=== PATIENT | female | born 1970 | race African-American/Black ===

== ENCOUNTER 2022-08-30 04:06 | Inpatient (IN) ==
[2022-08-30] MEDS ORDERED: ASPIRIN 325 MG TABLET PO STA (04:25)
[2022-08-30] MEDS ORDERED: methylPREDNISolone SOD SUC 125 MG/2 ML VIAL IV STA (05:00)
[2022-08-30] MEDS ORDERED: ALBUTEROL/IPRATROPIUM 3 ML NEB RESP TX STA ×2 (05:00→05:32)
[2022-08-30 05:51] LABS: Albumin 2.9 G/DL (3.4-5.0); Bilirubin,Total 0.4 MG/DL (0.20-1.00); Calcium 8.5 MG/DL (8.5-10.1); Osmolality,Calculated 299.7 MOS/KG (273-304); Potassium 3.9 MMOL/L (3.5-5.1); Total Protein 6.7 G/DL (6.4-8.2)
[2022-08-30] MEDS ORDERED: SODIUM CHLORIDE 0.9% 1,000 ML IV PRN ×2 (06:34→08:11)
[2022-08-30] MEDS ORDERED: ALBUTEROL 2.5 MG/3 ML NEB RESP TX STA (07:24)
[2022-08-30] MEDS ORDERED: ONDANSETRON 4 MG/2 ML VIAL IV PRN (08:08)
[2022-08-30] MEDS ORDERED: FUROSEMIDE 40 MG/4 ML VIAL IV STA (08:12)
[2022-08-30 08:38] LABS: % Iron Saturation 18.9 % (18-50)
[2022-08-30] MEDS ORDERED: POLYETHYLENE GLYCOL POWDER 255 GM BOTTLE PO ONE (08:41)
[2022-08-30] MEDS ORDERED: LOPERAMIDE 2 MG CAPSULE PO PRN (08:45)
[2022-08-30] MEDS ORDERED: ALBUTEROL 2.5 MG/3 ML NEB RESP TX PRN (08:45)
[2022-08-30] MEDS ORDERED: ALUMINUM/MAGNES/SIMETH MAX STR 30 ML UDCUP PO PRN (08:45)
[2022-08-30 08:48] LABS: Ferritin 607.5 ng/mL (8-252)
[2022-08-30] MEDS: ISOSORBIDE MONONITRATE 30 MG TABLET PO SCH (09:05)
[2022-08-30] MEDS: cloNIDine 0.1 MG TABLET PO SCH ×3 (09:05→20:25)
[2022-08-30] MEDS: HEPARIN 5,000 UNIT/1 ML VIAL SUBCUT SCH ×2 (09:05→21:04)
[2022-08-30] MEDS: PANTOPRAZOLE 40 MG TABLET PO SCH (09:05)
[2022-08-30] MEDS: LABETALOL 200 MG TABLET PO SCH ×2 (09:05→20:25)
[2022-08-30] MEDS: LORATADINE 10 MG TABLET PO SCH (09:05)
[2022-08-30] MEDS: amLODIPine 10 MG TABLET PO SCH (09:05)
[2022-08-30] MEDS: PIPERACILLIN/TAZOBACTAM 3,375 MG in SODIUM CHLORIDE 0.9% 100 ML IV SCH ×2 (09:10→20:24)
[2022-08-30 09:18] LABS: Basophils % 0.3 % (0.0-0.8); Eosinophils # 0.1 10*3/uL (0.0-0.87); Eosinophils % 2.6 % (0.00-10.9); Hematocrit 19.6 VOL% (35.7-47.0); Immature Granulocytes % 0.5 %; Immature Granulocytes Absolute 0.02 #; Lymphocytes # 0.8 10*3/uL (1.4-4.0); Lymphocytes % 21.8 % (21.3-54.2); Mean Corpuscular HGB Conc 31.1 GM/DL (32-36); Mean Corpuscular Volume 86.3 FL (87-102); Mean Platelet Volume 10.3 FL (9.6-12.0); Monocytes # 0.5 10*3/uL (0.11-0.8); Monocytes % 13.2 % (1.7-12.7); Neutrophils % 61.6 % (38.7-73.9); Platelet Count 198 T/CUMM (130-400); Red Blood Count 2.27 MC/CUMM (3.8-5.5); White Blood Count 3.9 T/CUMM (4-12)
[2022-08-30 09:19] LABS: Hemoglobin 6.1 GM/DL (12.0-16.0)
[2022-08-30 09:39] LABS: RBC,Urine 2 /HPF (0-4); Squamous Epithelial Cell,Urine Occasional /HPF (0-10)
[2022-08-30 09:40] LABS: Urine Appearance Clear (Clear); Urine Color Yellow (Yellow)
[2022-08-30 09:41] LABS: Bilirubin,Urine Negative (Negative); Blood, Urine Trace mg/dL (Negative); Glucose,Urine (UA) Negative (Negative); Ketones,Urine Negative (Negative); Nitrite,Urine Negative (Negative); Protein,Urine >=300 mg/dL (Negative); Urine Specific Gravity 1.015 (1.001-1.035); Urine Urobilinogen 0.2 eU/dL (<2.0); Urine pH 6.5 (4.5-8.0)
[2022-08-30 10:22] LABS: Sedimentation Rate-Westergren 121 MM/HR (0-20)
[2022-08-30] MEDS: ALBUTEROL/IPRATROPIUM 3 ML NEB RESP TX SCH ×3 (10:24→20:07)
[2022-08-30 12:27] LABS: Barbiturates Screen,Urine Negative (Negative); Benzodiazepines Screen,Urine Negative (Negative); Cannabinoid Screen,Urine Negative (Negative); Opiate Screen,Urine Negative (Negative); Phencyclidine Screen,Urine Negative (Negative)
[2022-08-30] MEDS ORDERED: FUROSEMIDE 40 MG/4 ML VIAL IV ONE (14:37)
[2022-08-30] MEDS: methylPREDNISolone SOD SUC 40 MG/1 ML VIAL IV SCH ×2 (16:54→21:52)
[2022-08-30] MEDS: POLYETHYLENE GLYCOL POWDER 17 GM PACK PO SCH (16:55)
[2022-08-30] MEDS: hydrALAZINE 20 MG/1 ML VIAL IV PRN (18:20)
[2022-08-30 20:40] LABS: Folate 15.38 NG/ML (5.38-24.0); Vitamin B12 452 PG/ML (211-911)
[2022-08-30] MEDS: QUEtiapine 100 MG TABLET PO SCH (21:15)
[2022-08-30] MEDS: ATORVASTATIN 20 MG TABLET PO SCH (21:15)
[2022-08-30] MEDS: ACETAMINOPHEN 325 MG TABLET PO PRN (21:24)
[2022-08-31] MEDS: methylPREDNISolone SOD SUC 40 MG/1 ML VIAL IV SCH (05:20)
[2022-08-31] MEDS: cloNIDine 0.1 MG TABLET PO SCH ×2 (05:21→08:03)
[2022-08-31 05:32] LABS: Hematocrit 27.5 VOL% (35.7-47.0); Immature Granulocytes % 0.6 %; Immature Granulocytes Absolute 0.03 #; Lymphocytes # 0.5 10*3/uL (1.4-4.0); Lymphocytes % 10.1 % (21.3-54.2); Mean Corpuscular Volume 84.4 FL (87-102); Mean Platelet Volume 9.6 FL (9.6-12.0); Monocytes # 0.1 10*3/uL (0.11-0.8); Monocytes % 2.7 % (1.7-12.7); Neutrophils % 86.6 % (38.7-73.9); Platelet Count 224 T/CUMM (130-400); Red Cell Distribution Width 17.3 % (9.3-17.3)
[2022-08-31 05:51] LABS: Hemoglobin 8.8 GM/DL (12.0-16.0); Red Blood Count 3.26 MC/CUMM (3.8-5.5); White Blood Count 5.3 T/CUMM (4-12)
[2022-08-31] MEDS: ALBUTEROL/IPRATROPIUM 3 ML NEB RESP TX SCH ×6 (05:57→20:56)
[2022-08-31 06:08] LABS: Risk Ratio 1.43; VLDL Cholesterol 4.6 MG/DL
[2022-08-31 06:22] LABS: Phosphorous 5.9 MG/DL (2.5-4.9); Uric Acid 9.6 MG/DL (2.6-6.0)
[2022-08-31 06:33] LABS: Albumin 3.1 G/DL (3.4-5.0); Bilirubin,Total 0.6 MG/DL (0.20-1.00); Calcium 9.1 MG/DL (8.5-10.1); Osmolality,Calculated 304.8 MOS/KG (273-304); Potassium 4.1 MMOL/L (3.5-5.1); Thyroid Stimulating Hormone 1.89 uIU/ml (0.358-3.74); Total Protein 8.2 G/DL (6.4-8.2)
[2022-08-31 06:39] LABS: Total Protein 8.3 G/DL (6.4-8.2)
[2022-08-31 06:45] LABS: Hepatitis B Surface Ab Result Reactive (NonReactive); Hepatitis B Surface Ag Quant < 0.10 Index; Hepatitis B Surface Ag Result Non-Reactive (NonReactive); Hepatitis C Virus Ab Quant 0.05 Index; Hepatitis C Virus Ab Result Non-Reactive (NonReactive)
[2022-08-31 07:41] LABS: RPR Confirm - Less than 1 yr NONREACTIVE (Nonreactive)
[2022-08-31] MEDS: ISOSORBIDE MONONITRATE 30 MG TABLET PO SCH (08:02)
[2022-08-31] MEDS: LORATADINE 10 MG TABLET PO SCH (08:02)
[2022-08-31] MEDS: PANTOPRAZOLE 40 MG TABLET PO SCH (08:02)
[2022-08-31] MEDS: amLODIPine 10 MG TABLET PO SCH (08:02)
[2022-08-31] MEDS: POLYETHYLENE GLYCOL POWDER 17 GM PACK PO SCH (08:02)
[2022-08-31] MEDS: PIPERACILLIN/TAZOBACTAM 3,375 MG in SODIUM CHLORIDE 0.9% 100 ML IV SCH ×2 (08:04→22:08)
[2022-08-31] MEDS: LABETALOL 200 MG TABLET PO SCH ×2 (09:00→22:10)
[2022-08-31] MEDS: HEPARIN 5,000 UNIT/1 ML VIAL SUBCUT SCH ×2 (10:19→22:11)
[2022-08-31] MEDS: FLUTICASONE 50 MCG NASAL SPRAY 16 GM BOTTLE BOTH NARES SCH (10:20)
[2022-08-31] MEDS: hydrALAZINE 20 MG/1 ML VIAL IV PRN (11:28)
[2022-08-31] MEDS: ISOSORBIDE DINITRATE 20 MG TABLET PO SCH ×2 (14:53→22:10)
[2022-08-31] MEDS: hydrALAZINE 25 MG TABLET PO SCH ×2 (14:53→22:10)
[2022-08-31] MEDS: ATORVASTATIN 20 MG TABLET PO SCH (22:10)
[2022-08-31] MEDS: QUEtiapine 100 MG TABLET PO SCH (22:10)
[2022-08-31] MEDS: DOCUSATE SODIUM 100 MG CAPSULE PO PRN (22:10)
[2022-09-01] MEDS: ALBUTEROL/IPRATROPIUM 3 ML NEB RESP TX SCH ×7 (00:13→23:51)
[2022-09-01 06:17] LABS: Calcium 8.5 MG/DL (8.5-10.1); Osmolality,Calculated 308.5 MOS/KG (273-304); Potassium 3.9 MMOL/L (3.5-5.1)
[2022-09-01 06:34] LABS: Basophils % 0.2 % (0.0-0.8); Eosinophils % 0.2 % (0.00-10.9); Hematocrit 23.6 VOL% (35.7-47.0); Hemoglobin 7.5 GM/DL (12.0-16.0); Immature Granulocytes % 0.6 %; Immature Granulocytes Absolute 0.04 #; Lymphocytes % 15.3 % (21.3-54.2); Mean Corpuscular HGB Conc 31.8 GM/DL (32-36); Mean Corpuscular Volume 85.5 FL (87-102); Mean Platelet Volume 8.8 FL (9.6-12.0); Monocytes # 0.5 10*3/uL (0.11-0.8); Monocytes % 8.6 % (1.7-12.7); Neutrophils % 75.1 % (38.7-73.9); Platelet Count 193 T/CUMM (130-400); Red Blood Count 2.76 MC/CUMM (3.8-5.5); Red Cell Distribution Width 17.7 % (9.3-17.3); White Blood Count 6.2 T/CUMM (4-12)
[2022-09-01] MEDS: LABETALOL 200 MG TABLET PO SCH ×2 (09:13→21:16)
[2022-09-01] MEDS: ISOSORBIDE MONONITRATE 30 MG TABLET PO SCH (09:14)
[2022-09-01] MEDS: amLODIPine 10 MG TABLET PO SCH (09:14)
[2022-09-01] MEDS: LORATADINE 10 MG TABLET PO SCH (09:14)
[2022-09-01] MEDS: HEPARIN 5,000 UNIT/1 ML VIAL SUBCUT SCH ×3 (09:15→21:17)
[2022-09-01] MEDS: PIPERACILLIN/TAZOBACTAM 3,375 MG in SODIUM CHLORIDE 0.9% 100 ML IV SCH ×2 (09:15→21:16)
[2022-09-01] MEDS: FERRIC GLUCONATE COMPLEX 125 MG in SODIUM CHLORIDE 0.9% 100 ML IV SCH (09:15)
[2022-09-01] MEDS: POLYETHYLENE GLYCOL POWDER 17 GM PACK PO SCH (09:16)
[2022-09-01] MEDS: PANTOPRAZOLE 40 MG TABLET PO SCH (09:16)
[2022-09-01] MEDS: ISOSORBIDE DINITRATE 20 MG TABLET PO SCH ×3 (09:22→21:02)
[2022-09-01] MEDS: FLUTICASONE 50 MCG NASAL SPRAY 16 GM BOTTLE BOTH NARES SCH (09:25)
[2022-09-01 14:11] LABS: % CD4 (T Cells) 17 % (32-64); % CD8 (T Cells) 39 % (13-40); 4/8 Ratio 0.4 (>=0.9)
[2022-09-01] MEDS: QUEtiapine 100 MG TABLET PO SCH (21:00)
[2022-09-01] MEDS: DOCUSATE SODIUM 100 MG CAPSULE PO PRN (21:01)
[2022-09-01] MEDS: ATORVASTATIN 20 MG TABLET PO SCH (21:01)
[2022-09-02] MEDS: ALBUTEROL/IPRATROPIUM 3 ML NEB RESP TX SCH ×6 (02:05→23:30)
[2022-09-02 07:58] LABS: Basophils % 0.2 % (0.0-0.8); Eosinophils # 0.1 10*3/uL (0.0-0.87); Eosinophils % 1.8 % (0.00-10.9); Hematocrit 23.3 VOL% (35.7-47.0); Hemoglobin 7.3 GM/DL (12.0-16.0); Immature Granulocytes % 0.7 %; Immature Granulocytes Absolute 0.03 #; Lymphocytes # 0.8 10*3/uL (1.4-4.0); Lymphocytes % 17.8 % (21.3-54.2); Mean Corpuscular HGB Conc 31.3 GM/DL (32-36); Mean Corpuscular Volume 85.3 FL (87-102); Mean Platelet Volume 9.5 FL (9.6-12.0); Monocytes # 0.4 10*3/uL (0.11-0.8); Monocytes % 8.9 % (1.7-12.7); Neutrophils % 70.6 % (38.7-73.9); Platelet Count 184 T/CUMM (130-400); Red Blood Count 2.73 MC/CUMM (3.8-5.5); Red Cell Distribution Width 17.4 % (9.3-17.3); White Blood Count 4.4 T/CUMM (4-12)
[2022-09-02 08:19] LABS: Calcium 8.2 MG/DL (8.5-10.1); Osmolality,Calculated 314.1 MOS/KG (273-304); Potassium 3.8 MMOL/L (3.5-5.1)
[2022-09-02] MEDS: ISOSORBIDE MONONITRATE 30 MG TABLET PO SCH (08:39)
[2022-09-02] MEDS: ISOSORBIDE DINITRATE 20 MG TABLET PO SCH ×2 (08:39→14:25)
[2022-09-02] MEDS: PANTOPRAZOLE 40 MG TABLET PO SCH (08:40)
[2022-09-02] MEDS: FERRIC GLUCONATE COMPLEX 125 MG in SODIUM CHLORIDE 0.9% 100 ML IV SCH (08:40)
[2022-09-02] MEDS: amLODIPine 10 MG TABLET PO SCH (08:40)
[2022-09-02] MEDS: FLUTICASONE 50 MCG NASAL SPRAY 16 GM BOTTLE BOTH NARES SCH (08:40)
[2022-09-02] MEDS: LORATADINE 10 MG TABLET PO SCH (08:40)
[2022-09-02] MEDS: HEPARIN 5,000 UNIT/1 ML VIAL SUBCUT SCH ×2 (08:41→20:49)
[2022-09-02] MEDS: POLYETHYLENE GLYCOL POWDER 17 GM PACK PO SCH (08:41)
[2022-09-02] MEDS: LABETALOL 200 MG TABLET PO SCH ×2 (08:51→20:49)
[2022-09-02 09:29] LABS: Immunoglobulin A (Chem) 230 MG/DL (70-400); Immunoglobulin G (Chem) 1910 MG/DL (700-1600); Immunoglobulin M (Chem) 35 MG/DL (40-230); Total Protein (Chem) 8.3 G/DL (6.4-8.3)
[2022-09-02 09:51] LABS: Hemoglobin A1 (Alkaline) 97.5 % (96.5-98.5); Hemoglobin A2 (Alkaline) 2.5 % (1.5-3.5)
[2022-09-02] MEDS: predniSONE 20 MG TABLET PO SCH (10:07)
[2022-09-02] MEDS: PIPERACILLIN/TAZOBACTAM 3,375 MG in SODIUM CHLORIDE 0.9% 100 ML IV SCH (10:07)
[2022-09-02 11:11] LABS: Albumin (SPE) 4.5 G/DL (3.2-5.3); Albumin (SPE) Rel % 54.7 %; Alpha 1 (SPE) 0.3 G/DL (0.1-0.4); Alpha 1 (SPE) Rel % 3.4 %; Alpha 2 (SPE) 0.9 G/DL (0.4-1.0); Alpha 2 (SPE) Rel % 10.6 %; Beta (SPE) 0.8 G/DL (0.5-1.1); Beta (SPE) Rel % 9.7 %; Gamma (SPE) 1.8 G/DL (0.7-1.7); Gamma (SPE) Rel % 21.6 %
[2022-09-02 11:36] LABS: Mycoplasma pneumoniae Ab Inter SEE COMMENTS; Mycoplasma pneumoniae Ab, IgG Positive (Negative); Mycoplasma pneumoniae Ab, IgM Negative (Negative)
[2022-09-02] MEDS: cefTRIAXone 1,000 MG in SODIUM CHLORIDE 0.9% 100 ML IV SCH (12:59)
[2022-09-02] MEDS: AZITHROMYCIN INJ 500 MG in SODIUM CHLORIDE 0.9% 250 ML IV SCH (13:29)
[2022-09-02] MEDS: ATORVASTATIN 20 MG TABLET PO SCH (20:49)
[2022-09-02] MEDS: QUEtiapine 100 MG TABLET PO SCH (20:49)
[2022-09-03] MEDS: ALBUTEROL/IPRATROPIUM 3 ML NEB RESP TX SCH ×5 (03:30→19:10)
[2022-09-03 05:39] LABS: Eosinophils % 0.2 % (0.00-10.9); Hematocrit 23.9 VOL% (35.7-47.0); Hemoglobin 7.7 GM/DL (12.0-16.0); Immature Granulocytes Absolute 0.05 #; Lymphocytes # 0.6 10*3/uL (1.4-4.0); Lymphocytes % 12.5 % (21.3-54.2); Mean Corpuscular HGB Conc 32.2 GM/DL (32-36); Mean Corpuscular Volume 85.7 FL (87-102); Mean Platelet Volume 10.1 FL (9.6-12.0); Monocytes # 0.4 10*3/uL (0.11-0.8); Monocytes % 8.6 % (1.7-12.7); Neutrophils % 77.7 % (38.7-73.9); Platelet Count 187 T/CUMM (130-400); Red Blood Count 2.79 MC/CUMM (3.8-5.5); Red Cell Distribution Width 17.2 % (9.3-17.3)
[2022-09-03 06:02] LABS: Calcium 8.5 MG/DL (8.5-10.1); Osmolality,Calculated 310.3 MOS/KG (273-304); Potassium 3.5 MMOL/L (3.5-5.1)
[2022-09-03] MEDS: POLYETHYLENE GLYCOL POWDER 17 GM PACK PO SCH (08:55)
[2022-09-03] MEDS: LORATADINE 10 MG TABLET PO SCH (08:55)
[2022-09-03] MEDS: HEPARIN 5,000 UNIT/1 ML VIAL SUBCUT SCH ×2 (08:55→20:47)
[2022-09-03] MEDS: LABETALOL 200 MG TABLET PO SCH (08:55)
[2022-09-03] MEDS: FLUTICASONE 50 MCG NASAL SPRAY 16 GM BOTTLE BOTH NARES SCH (08:55)
[2022-09-03] MEDS: predniSONE 20 MG TABLET PO SCH (08:56)
[2022-09-03] MEDS: amLODIPine 10 MG TABLET PO SCH (08:56)
[2022-09-03] MEDS: PANTOPRAZOLE 40 MG TABLET PO SCH (08:56)
[2022-09-03] MEDS ORDERED: ASPIRIN EC 81 MG TABLET PO SCH (09:00)
[2022-09-03] MEDS ORDERED: ISOSORBIDE MONONITRATE 30 MG TABLET PO SCH (09:00)
[2022-09-03] MEDS: FERRIC GLUCONATE COMPLEX 125 MG in SODIUM CHLORIDE 0.9% 100 ML IV SCH (09:05)
[2022-09-03] MEDS ORDERED: carvediloL 6.25 MG TABLET PO ONE (10:21)
[2022-09-03] MEDS ORDERED: ISOSORBIDE MONONITRATE 30 MG TABLET PO ONE (10:22)
[2022-09-03] MEDS: cefTRIAXone 1,000 MG in SODIUM CHLORIDE 0.9% 100 ML IV SCH (13:34)
[2022-09-03] MEDS: AZITHROMYCIN INJ 500 MG in SODIUM CHLORIDE 0.9% 250 ML IV SCH (14:13)
[2022-09-03] MEDS: carvediloL 25 MG TABLET PO SCH (16:11)
[2022-09-03 16:31] LABS: Myeloperoxidase Antibody < 0.2 U
[2022-09-03 17:31] LABS: Kappa Free Light Chain 38.4 mg/dL; Lambda Free Light Chain 22.8 mg/dL
[2022-09-03] MEDS: QUEtiapine 100 MG TABLET PO SCH (20:46)
[2022-09-03] MEDS: ATORVASTATIN 20 MG TABLET PO SCH (20:46)
[2022-09-04] MEDS: ALBUTEROL/IPRATROPIUM 3 ML NEB RESP TX SCH ×7 (00:35→23:55)
[2022-09-04 05:42] LABS: Eosinophils % 0.2 % (0.00-10.9); Hematocrit 25.4 VOL% (35.7-47.0); Immature Granulocytes Absolute 0.05 #; Lymphocytes # 0.7 10*3/uL (1.4-4.0); Lymphocytes % 13.9 % (21.3-54.2); Mean Corpuscular HGB Conc 31.5 GM/DL (32-36); Mean Corpuscular Volume 86.7 FL (87-102); Mean Platelet Volume 10.5 FL (9.6-12.0); Monocytes # 0.4 10*3/uL (0.11-0.8); Monocytes % 8.6 % (1.7-12.7); Neutrophils % 76.3 % (38.7-73.9); Platelet Count 188 T/CUMM (130-400); Red Blood Count 2.93 MC/CUMM (3.8-5.5); Red Cell Distribution Width 17.4 % (9.3-17.3); White Blood Count 5.1 T/CUMM (4-12)
[2022-09-04] MEDS: hydrALAZINE 20 MG/1 ML VIAL IV PRN (05:43)
[2022-09-04 06:01] LABS: Calcium 8.8 MG/DL (8.5-10.1); Osmolality,Calculated 308.3 MOS/KG (273-304); Potassium 3.8 MMOL/L (3.5-5.1)
[2022-09-04] MEDS: predniSONE 20 MG TABLET PO SCH (09:29)
[2022-09-04] MEDS: ISOSORBIDE MONONITRATE 60 MG TABLET PO SCH (09:29)
[2022-09-04] MEDS: PANTOPRAZOLE 40 MG TABLET PO SCH (09:29)
[2022-09-04] MEDS: amLODIPine 10 MG TABLET PO SCH (09:29)
[2022-09-04] MEDS: HEPARIN 5,000 UNIT/1 ML VIAL SUBCUT SCH (09:29)
[2022-09-04] MEDS: LORATADINE 10 MG TABLET PO SCH (09:29)
[2022-09-04] MEDS: carvediloL 25 MG TABLET PO SCH ×2 (09:29→17:35)
[2022-09-04] MEDS: FLUTICASONE 50 MCG NASAL SPRAY 16 GM BOTTLE BOTH NARES SCH (09:30)
[2022-09-04] MEDS: POLYETHYLENE GLYCOL POWDER 17 GM PACK PO SCH (09:32)
[2022-09-04] MEDS: FERRIC GLUCONATE COMPLEX 125 MG in SODIUM CHLORIDE 0.9% 100 ML IV SCH (09:38)
[2022-09-04] MEDS: cefTRIAXone 1,000 MG in SODIUM CHLORIDE 0.9% 100 ML IV SCH (13:52)
[2022-09-04] MEDS: AZITHROMYCIN INJ 500 MG in SODIUM CHLORIDE 0.9% 250 ML IV SCH (14:31)
[2022-09-04] MEDS: QUEtiapine 100 MG TABLET PO SCH (20:00)
[2022-09-04] MEDS: ATORVASTATIN 20 MG TABLET PO SCH (20:00)
[2022-09-05] MEDS: ALBUTEROL/IPRATROPIUM 3 ML NEB RESP TX SCH ×6 (04:01→23:34)
[2022-09-05 05:28] LABS: Hematocrit 28.8 VOL% (35.7-47.0); Immature Granulocytes % 1.3 %; Immature Granulocytes Absolute 0.08 #; Lymphocytes # 0.8 10*3/uL (1.4-4.0); Lymphocytes % 12.9 % (21.3-54.2); Mean Corpuscular HGB Conc 31.3 GM/DL (32-36); Mean Corpuscular Volume 87.3 FL (87-102); Mean Platelet Volume 9.4 FL (9.6-12.0); Monocytes # 0.4 10*3/uL (0.11-0.8); Monocytes % 5.9 % (1.7-12.7); Neutrophils % 79.9 % (38.7-73.9); Platelet Count 188 T/CUMM (130-400); Red Cell Distribution Width 17.2 % (9.3-17.3)
[2022-09-05 05:48] LABS: Calcium 9.3 MG/DL (8.5-10.1); Osmolality,Calculated 305.7 MOS/KG (273-304); Potassium 3.7 MMOL/L (3.5-5.1)
[2022-09-05 05:50] LABS: Albumin 3.2 G/DL (3.4-5.0); Bilirubin,Total 0.4 MG/DL (0.20-1.00); Calcium 9.3 MG/DL (8.5-10.1); Osmolality,Calculated 308.3 MOS/KG (273-304); Potassium 3.7 MMOL/L (3.5-5.1); Total Protein 7.6 G/DL (6.4-8.2)
[2022-09-05 07:15] LABS: Random Urine Protein (Bench) 214 MG/DL (<11.9)
[2022-09-05] MEDS: ISOSORBIDE MONONITRATE 60 MG TABLET PO SCH (08:41)
[2022-09-05] MEDS: FLUTICASONE 50 MCG NASAL SPRAY 16 GM BOTTLE BOTH NARES SCH (08:42)
[2022-09-05] MEDS: SEVELAMER CARBONATE 800 MG TABLET PO SCH ×3 (08:42→16:20)
[2022-09-05] MEDS: carvediloL 25 MG TABLET PO SCH ×2 (08:42→16:20)
[2022-09-05] MEDS: amLODIPine 10 MG TABLET PO SCH (08:42)
[2022-09-05] MEDS: POLYETHYLENE GLYCOL POWDER 17 GM PACK PO SCH (08:43)
[2022-09-05] MEDS: SODIUM BICARBONATE 650 MG TABLET PO SCH ×3 (08:44→21:43)
[2022-09-05] MEDS: PANTOPRAZOLE 40 MG TABLET PO SCH (08:44)
[2022-09-05] MEDS: LORATADINE 10 MG TABLET PO SCH (08:44)
[2022-09-05] MEDS: predniSONE 20 MG TABLET PO SCH (08:44)
[2022-09-05] MEDS: FERRIC GLUCONATE COMPLEX 125 MG in SODIUM CHLORIDE 0.9% 100 ML IV SCH (08:52)
[2022-09-05 09:32] LABS: Albumin (UPER) 150.8 MG/DL; Albumin (UPER) Rel% 70.5 %; Alpha 1 (UPER) 12.4 MG/DL; Alpha 1 (UPER) Rel% 5.8 %; Alpha 2 (UPER) 5.4 MG/DL; Alpha 2 (UPER) Rel % 2.5 %; Beta (UPER) 10.5 MG/DL; Beta (UPER) Rel % 4.9 %; Gamma (UPER) 34.9 MG/DL; Gamma (UPER) Rel % 16.3 %
[2022-09-05] MEDS ORDERED: fentaNYL 100 MCG/2 ML VIAL ONE (10:47)
[2022-09-05] MEDS ORDERED: ONDANSETRON 4 MG/2 ML VIAL ONE (10:47)
[2022-09-05] MEDS ORDERED: propofoL 200 MG/20 ML VIAL IV ONE (10:47)
[2022-09-05] MEDS ORDERED: LIDOCAINE 2% 5 ML VIAL ONE (10:47)
[2022-09-05] MEDS ORDERED: MIDAZOLAM 2 MG/2 ML VIAL ONE (10:47)
[2022-09-05] MEDS ORDERED: HEPARIN 5,000 UNIT/1 ML VIAL ONE (11:08)
[2022-09-05] MEDS ORDERED: LIDOCAINE 1% 5 ML VIAL ONE (12:32)
[2022-09-05] MEDS ORDERED: DOXAZOSIN 1 MG TABLET PO ONE (12:47)
[2022-09-05] MEDS ORDERED: SUCCINYLCHOLINE 200 MG/10 ML VIAL ONE (12:53)
[2022-09-05] MEDS ORDERED: ROCURONIUM 50 MG/5 ML VIAL IV ONE (12:53)
[2022-09-05] MEDS ORDERED: PHENYLEPHRINE 1 MG/10 ML SYRINGE IV ONE (13:10)
[2022-09-05] MEDS ORDERED: SODIUM CHLORIDE 0.9% 250 ML IV ONE (13:16)
[2022-09-05] MEDS ORDERED: SEVOFLURANE 1 UNIT/15 MINUTE INH ONE (13:20)
[2022-09-05] MEDS: cefTRIAXone 1,000 MG in SODIUM CHLORIDE 0.9% 100 ML IV SCH (14:35)
[2022-09-05] MEDS: AZITHROMYCIN INJ 500 MG in SODIUM CHLORIDE 0.9% 250 ML IV SCH (14:35)
[2022-09-05] MEDS ORDERED: DOXAZOSIN 1 MG TABLET PO SCH (21:00)
[2022-09-05] MEDS: ATORVASTATIN 20 MG TABLET PO SCH (21:43)
[2022-09-05] MEDS: QUEtiapine 100 MG TABLET PO SCH (21:43)
[2022-09-05] MEDS: ACETAMINOPHEN 325 MG TABLET PO PRN (23:27)
[2022-09-06] MEDS: ALBUTEROL/IPRATROPIUM 3 ML NEB RESP TX SCH ×3 (03:40→10:49)
[2022-09-06 07:50] VITALS: BP 164/92
[2022-09-06] MEDS ORDERED: predniSONE 20 MG TABLET PO SCH (09:00)
[2022-09-06] MEDS: LORATADINE 10 MG TABLET PO SCH (10:30)
[2022-09-06] MEDS: ISOSORBIDE MONONITRATE 60 MG TABLET PO SCH (10:30)
[2022-09-06] MEDS: SODIUM BICARBONATE 650 MG TABLET PO SCH (10:30)
[2022-09-06] MEDS: amLODIPine 10 MG TABLET PO SCH (10:31)
[2022-09-06] MEDS: PANTOPRAZOLE 40 MG TABLET PO SCH (10:31)
[2022-09-06] MEDS: SEVELAMER CARBONATE 800 MG TABLET PO SCH (10:31)
[2022-09-06] MEDS: carvediloL 25 MG TABLET PO SCH (10:31)
[2022-09-06] MEDS: FERRIC GLUCONATE COMPLEX 125 MG in SODIUM CHLORIDE 0.9% 100 ML IV SCH (10:35)
[2022-09-06] MEDS: FLUTICASONE 50 MCG NASAL SPRAY 16 GM BOTTLE BOTH NARES SCH (10:35)
[2022-09-06] MEDS: POLYETHYLENE GLYCOL POWDER 17 GM PACK PO SCH (10:35)
== END 2022-09-06 12:23 | disposition home or self-care (01) | DRG 264 ==
LOC: N.ED 04:06 → N.EDINP 08:06 → SUATTDRO 08:06 → N.TELEN 17:20
PROVIDERS: ADMIT Internal Medicine; ATTEND Hospitalist